=== PATIENT | male | born 1945 | race Caucasian/White ===

== ENCOUNTER 2017-04-16 08:25 | Observation (INO) | payer MEDICARE ==
[~2017-04-16 08:25] MED LIST: Bacitracin IV* 50,000 UNITS INJ ONE; Buffered Lidocaine 0.9% SYRIN* 5 ML/SYR SYRINGE INTRADERM ONE; Lidocaine 1% MPF wEPI 200,000* 30 ML SDV ONE; Thrombin 5,000 UNITS* 1 APPLIC KIT - topical use - TOPICAL ONE
[2017-04-16] MEDS ORDERED: ceFAZolin 2 GM PREMIX (*) 50 ML IVPB ONE (08:26)
[2017-04-16] MEDS ORDERED: DiMENhydriNATE IV* 50 MG/ML VIAL IV PUSH PRN (10:39)
[2017-04-16] MEDS ORDERED: Ondansetron INJ* 2 MG/ML VIAL IV PRN ×2 (10:39→13:10)
[2017-04-16] MEDS ORDERED: PROCHLORPERAZINE INJ 5 MG/ML 2 ML VIAL IV PRN (10:39)
[2017-04-16] MEDS ORDERED: fentaNYL* 50 MCG/ML 2 ML VIAL (100 MCG VIAL) IV PRN (10:39)
[2017-04-16] MEDS ORDERED: Midazolam* 1 MG/ML 2 ML VIAL (2 MG) ONE (10:48)
[2017-04-16] MEDS ORDERED: fentaNYL* 50 MCG/ML 2 ML VIAL (100 MCG VIAL) ONE (11:51)
[2017-04-16] MEDS ORDERED: Rocuronium* 10 MG/ML VIAL ONE (11:54)
[2017-04-16] MEDS ORDERED: ceFAZolin 1 GM VIAL(*) ONE (12:29)
[2017-04-16] MEDS ORDERED: Propofol* 10 MG/ML 20 ML BTL IV PUSH ONE (12:29)
[2017-04-16] MEDS ORDERED: Famotidine IV* 10 MG/ML 2 ML (20 mg) ONE (12:29)
[2017-04-16] MEDS ORDERED: Dexamethasone IV* 4 MG/ML 1 ML (4 MG) ONE (12:29)
[2017-04-16] MEDS ORDERED: Metoprolol Tartrate IV* 1 MG/ML 5 ML VIAL ONE (12:29)
[2017-04-16] MEDS ORDERED: Lidocaine 2% PF * 5 ML VIAL ONE (12:29)
[2017-04-16] MEDS ORDERED: oxyCODONE TAB* 5 MG TAB PO PRN ×2 (13:12→13:19)
[2017-04-16] MEDS ORDERED: Aspirin TAB* 325 MG PO PRN (13:12)
[2017-04-16] MEDS ORDERED: Metoprolol Tartrate TAB* 25 MG ONE (13:43)
[2017-04-16] MEDS: Metoprolol Tartrate TAB* 25 MG PO SCH (13:44)
[2017-04-16] MEDS ORDERED: Dextrose 50% Syringe 50 ML* 25 GM/50 ML SYRINGE IV PUSH PRN ×2 (14:06→21:07)
[2017-04-16] MEDS ORDERED: Insulin LISPRO* 1 UNITS UNIT SUBCUT SCH (16:30)
--- NOTE | 2017-04-16 16:37 | RAD ---
CPT II Codes: 6045F INDICATION: L4/L5 lumbar laminectomy TECHNIQUE: Intraoperative fluoroscopy was provided during spine surgery. FINDINGS: A single spot film depicts a surgical device and retractor at the L4/L5 level. Fluoroscopy time: 1 second IMPRESSION: As above.
[2017-04-16] MEDS: Insulin LISPRO* 1 UNITS UNIT SUBCUT SCH (16:47)
[2017-04-16] MEDS: Lisinopril TAB* 10 MG PO SCH (16:47)
[2017-04-16] MEDS ORDERED: glyBURIDE TAB* 5 MG PO SCH (17:00)
--- NOTE | 2017-04-16 19:25 | CONS ---
CC: Dr. Anton; Dr. Dash * CONSULTATION REPORT: DATE OF ADMISSION: 04/16/17 PRIMARY CARE PROVIDER: Dr. Anton. REQUESTING PHYSICIAN FOR CONSULT: Dr. Dash. MY ATTENDING PHYSICIAN WHILE IN THE HOSPITAL: Dr. Jules Norton (report dictated by Gianfranco Nowak NP). REASON FOR MEDICAL CONSULTATION: Evaluation and medical management of comorbid medical conditions. HISTORY OF PRESENT ILLNESS: Mr. De León is a 71-year-old male patient, who presented to our neurosurgical service today, as he was having significant amount of back discomfort and pain particularly in his left leg. He had followed with Dr. Dash. He had been having the pain for about off and on for 4 years and he had progressively worsening left leg pain. He underwent PT. He failed conservative therapy. He had an MRI, which showed that he had significant disease at L4-5, so today he underwent a lumbar decompressive laminectomy. Unfortunately though, he does have a history of diabetes. He has a history of hypertension, hyperlipidemia, also carries a history of atrial fibrillation. Because of this, we were asked to evaluate in consult. He denies having any chest pain currently. He states he is feeling well. He denies having any abdominal pain. He denies having any chest pain or any shortness of breath. He says that he has no pain in his leg now. He states he is feeling excellent. He is not having any discomfort whatsoever with the exception near his back only. He says he typically takes p.o. medications for his diabetes and says he stopped his Coumadin prior to surgery and did not take his medication this morning for his blood pressure. Because of his medical complexity, we were asked to evaluate in consult. PAST MEDICAL HISTORY: Significant for: 1. AFib. 2. Diabetes. 3. Hypertension. 4. Hyperlipidemia. PAST SURGICAL HISTORY: 1. He has had a hernia repair. 2. Just had a laminectomy at L4-5 today. 3. Anal fissure repair. HOME MEDICATIONS: According to the list that we were able to obtain preoperatively include: 1. Metformin 1000 mg p.o. b.i.d. 2. Glyburide 5 mg p.o. twice a day. 3. Warfarin 5 mg daily. 4. Timolol 1 drop both eyes b.i.d. 5. Pravachol 40 mg daily. 6. [place]-3 fatty acids 1000 mg p.o. daily. 7. Multivitamin 1 tablet daily. 8. Lopressor 25 mg daily. 9. Lisinopril/hydrochlorothiazide 1 tablet daily. 10. Aspirin 975 mg every 6 hours as needed. ALLERGIES: Include DARVOCET. FAMILY HISTORY: Mother had a history of hypertension. Father had a history of lung cancer. SOCIAL HISTORY: He is a former smoker. He rarely drinks alcohol. Surrogate decision maker is his . REVIEW OF SYSTEMS: There is no documented fever. He denied having any significant weight change. There is no double vision. No ear discharge. He denied having any rhinorrhea. No sore throat. No thyroid enlargement and denied having any chest pain. No orthopnea. No nocturnal dyspnea. There is no abdominal pain. No nausea. No vomiting. No dysuria. No frequency. There is no seizure. No loss of consciousness or pruritus. No skin ulcerations. Review of 14 systems completed, all others negative. PHYSICAL EXAMINATION: Vital Signs: Reveals blood pressure 161/108 with a pulse of 80, respirations 13, O2 sat 97%, and temperature 96.8. General: At this time, Mr. De León is a 71-year-old male patient. He is sitting in the PACU bed. He does not appear to be in any acute distress. HEENT: Head is atraumatic and normocephalic. Eyes: EOMs are intact. Sclerae anicteric, not pale. Neck is supple. Throat: Oral mucosa appears to be moist. No oropharyngeal erythema. Heart: Sounds S1, S2. Irregularly irregular rate. No murmurs, rubs, or gallops. Lungs: Clear to auscultation bilaterally. No wheezes, rales, or rhonchi. Abdomen: Soft, flat. Bowel sounds hypoactive. Extremities: Pulses 2+ throughout. He had 5/5 strength. Neurologic: The patient is awake. He is alert and oriented x3. Tongue midline. Bonus Clerk were equal. He had no gross focal deficits. Skin: Intact with the exception he has got a midline lumbar incision, which is clean, dry and intact covered with an Dixon dressing. LABORATORY DATA/DIAGNOSTIC STUDIES: His laboratory data postoperatively revealed EKG of atrial fibrillation, rate of 102. No ST elevation or T-wave inversions. He does have right bundle-branch block. He had an echo, which showed an EF of 60% to 65%. He had a stress test as well, which showed normal cardiac chemical nuclear stress test. Preop labs showed sodium 134, potassium 4.2, chloride 97, bicarb 29, BUN 22, glucose 185, creatinine 0.78. He had WBC of 8.7, RBC of 4.97, hemoglobin 14.9, hematocrit of 44, platelets count of 234, 000. Old medical records were reviewed. ASSESSMENT AND PLAN: Mr. De León is a 71-year-old male patient coming into the hospital today for an elective lumbar decompression. We were asked to evaluate in consult to help manage his other medical problems. Recommendations at this point are: 1. Lumbar laminectomy. I will defer the management to Dr. Dash and his team. 2. Atrial fibrillation. We will continue rate control with his beta robert. I would recommend starting his Coumadin as soon as possible, as his CHADS-VASC score is elevated, but I will defer when to restart that to Dr. Dash and his team. 3. Hypertension. Blood pressure here is not well controlled. He just got his p.o. meds for this morning. We will see if this helps; if it does not, I would give him IV hydralazine or another agent see if we can bring it down. 4. Diabetes. He will be on lispro sliding scale. 5. Hyperlipidemia. Continue statin therapy. 6. DVT prophylaxis. I will defer to the primary team. 7. Fluid, electrolytes, and nutrition. I would recommend a consistent carb diet. 8. Code status. Full code. TIME SPENT: Time spent on the consult was 60 minutes, greater than half that time was spent [id number] with the patient obtaining my history and physical, the other half time was spent going over the plan of care with the patient and implementing the plan of care. I discussed the plan of care with my attending, Dr. Norton, he is in agreement. GIANFRANCO NOWAK NP [id number]/[facility] #: [id number] MTDAnnie
[2017-04-16 19:31] LABS: Calcium 8.7 mg/dL (8.6-10.3); EGFR African American 116.2 (>60); EGFR Non-African American 90.3 (>60); Potassium 4.4 mmol/L (3.5-5.0)
[2017-04-16] MEDS ORDERED: Metoprolol Tartrate TAB* 25 MG PO ONE (21:00)
[2017-04-16] MEDS ORDERED: Insulin LISPRO* 1 UNITS UNIT SUBCUT ONE (21:07)
[2017-04-16] MEDS: Timolol 0.5% OPTH.SOL* BTL BOTH EYES SCH (21:21)
[2017-04-17 06:49] LABS: Hematocrit 42 % (42-52); Hemoglobin 14.5 g/dl (14.0-18.0); Mean Corpuscular HGB Conc 35 g/dl (31-36); Mean Corpuscular Hemoglobin 31 pg (27-31); Mean Corpuscular Volume 88 fL (80-94); Mean Platelet Volume 7 um3 (7.4-10.4); Red Blood Count 4.71 10^6/ul (4.0-5.4); Red Cell Distribution Width 14 % (10.5-15); White Blood Count 14.6 10^3/ul (3.5-10.8)
--- NOTE | 2017-04-17 07:34 | PN ---
Progress Note - Progress Note Date of Service: 04/17/17 SOAP: Subjective: []POD # 1 Doing well Preop leg pain relieved Anxious for d/c Objective: []Dressing dry Minimal wound drainage Assessment: []Satis post op course Plan: []D/C today D/C instructions given
[2017-04-17 07:45] VITALS: BP 148/100
[2017-04-17] MEDS ORDERED: Insulin GLARGINE(*) 1 UNITS UNIT SUBCUT SCH (08:00)
[2017-04-17] MEDS ORDERED: Hydrochlorothiazide TAB* 25 MG PO SCH (09:00)
[2017-04-17] MEDS ORDERED: Lisinopril TAB* 10 MG PO SCH (09:00)
[2017-04-17] MEDS ORDERED: Atorvastatin* 10 MG TAB PO SCH (09:00)
[2017-04-17] MEDS ORDERED: Insulin LISPRO* 1 UNITS UNIT SUBCUT ONE (09:28)
[2017-04-17] MEDS: Metoprolol Tartrate TAB* 25 MG PO SCH (09:34)
[2017-04-17] MEDS: Lisinopril TAB* 10 MG PO SCH (09:34)
[2017-04-17] MEDS: Timolol 0.5% OPTH.SOL* BTL BOTH EYES SCH (09:35)
[2017-04-17] MEDS: Insulin LISPRO* 1 UNITS UNIT SUBCUT SCH (09:36)
[2017-04-17] MEDS ORDERED: Insulin LISPRO* 1 UNITS UNIT SUBCUT SCH (11:30)
--- NOTE | 2017-04-18 15:03 | OP ---
OPERATIVE REPORT: DATE OF OPERATION: 04/16/17. DATE OF : 47. PRIMARY SURGEON: Jai Moreno MD. PLASTIC BLOCK BOILER RELINER: GABRIEL Valverde. ANESTHESIA: General. PRE-OP DIAGNOSIS: Lumbar spinal stenosis, L4-5. POST-OP DIAGNOSIS: Lumbar spinal stenosis, L4-5. OPERATIVE PROCEDURE: Decompressive lumbar laminectomy, L4-5. DESCRIPTION OF PROCEDURE: After satisfactory general anesthesia was obtained, the patient was place d on the operating room table in the prone position with the chest supported on the Anton frame and the back slightly flexed. The lumbar region was then clipped, prepped, and draped in a sterile man ner for lumbar laminectomy and a skin incision outlined from L4 to L5. This incision was infiltrate d with 1% Xylocaine with epinephrine, after which it was turned in sharply to level of the lumbar fa scia. The fascia was divided along spinous processes of L4 and L5 and the paraspinal musculature st ripped away from the posterior elements utilizing the periosteal elevator and monopolar cautery. An intraoperative x-ray was obtained verifying proper interspace localization, after which decompressi on was carried out at this level by removing the spinous process of L4 with a combination of the Hor sley rib shear and Leksell rongeurs. The remaining portion of the base of the spinous process of th e L4 and inferior aspect of the lamina of L4 as well as the medial facet complex was thinned out wit h a Midas Tramaine drill. The decompression was then carried out with Kerrison rongeurs. This was lei ed superiorly until the attachment of the ligamentum flavum was taken down. The patient was noted t o have spondylolisthesis at this level and a decompression was carried laterally and inferiorly unti l both L5 nerve roots were noted to be free in their course. Hemostasis was obtained with temporary Gelfoam. After assuring adequate hemostasis, the wound was irrigated after which Gelfoam placed ove r the the laminectomy defect. A drain was placed in the epidural space and tunnelled out towards th e left side. The fascia was then reapproximated with 0 Vicryl suture. The subcutaneous tissue was c losed with 3-0 Vicryl suture and the skin closed with skin clips. The estimated blood loss was less than 50 cc and the final sponge, padding, and needle counts were correct. The patient was taken to the recovery room, extubated and in stable condition. [id number]/[facility] #: [id number]
== END 2017-04-17 10:05 | disposition home or self-care (01) ==
LOC: OR 08:25 → SSU 14:55
PROVIDERS: ADMIT Neurological Surgery; ATTEND Neurological Surgery
PROC: 01NB0ZZ Release Lumbar Nerve, Open Approach (ICD-10-PCS; 2017-04-16)
PROC: 0SB20ZZ Excision of Lumbar Vertebral Disc, Open Approach (ICD-10-PCS; principal; 2017-04-16 10:00)
DX: I10 Essential (primary) hypertension (principal); E11.9 Type 2 diabetes mellitus without complications; E78.5 Hyperlipidemia, unspecified; Z87.891 Personal history of nicotine dependence; Z79.84 Long term (current) use of oral hypoglycemic drugs; Z79.899 Other long term (current) drug therapy
CPT/HCPCS: 36415; 72100; 80048; 85025; A9270-GY; G0378; J0690; J1100; J2001; J2250; J2704; J3010